=== PATIENT | female | born 1950 | race Caucasian/White ===

== ENCOUNTER → 2020-08-08 | Outpatient (CLI) | payer OTHER | LOC: LAB 12:30 → LAB SHORT 12:30 | DX: D48.5 Neoplasm of uncertain behavior of skin (principal) | CPT/HCPCS: 88305 ==

== ENCOUNTER 2021-04-06 09:09 | Day surgery (SDC) | payer OTHER ==
[~2021-04-06] VITALS: Ht 167.6 cm; Wt 161.8 kg
[~2021-04-06 09:09] MED LIST: ACYC400 PO; BUSP10 PO; HYDHCL25 PO; LEVOTHYROXINE75 MC3 PO; NASACORT10.8 ML NS
== END 2021-04-06 11:22 | disposition home or self-care (01) ==
LOC: ORSCSDS 09:09
PROVIDERS: Ophthalmology
PROC: 08RK3JZ Replacement of Left Lens with Synthetic Substitute, Percutaneous Approach (ICD-10-PCS; principal; 2021-04-06 10:30)
DX: H25.12 Age-related nuclear cataract, left eye (principal); F41.8 Other specified anxiety disorders; Z79.899 Other long term (current) drug therapy
CPT/HCPCS: J2001; J2250; J3301; J7040; V2632

== ENCOUNTER 2021-05-04 08:23 | Day surgery (SDC) | payer OTHER ==
[~2021-05-04] VITALS: Ht 167.6 cm; Wt 72.5 kg
[2021-05-04] MEDS ORDERED: Aspir 8181 MG PO (09:01)
[2021-05-04] MEDS ORDERED: CALCIUM CITRAT1 EAC9 PO (09:02)
[2021-05-04] MEDS ORDERED: CICLODAN6.6 ML TP (09:02)
[2021-05-04] MEDS ORDERED: GLUCHON PO (09:03)
[2021-05-04] MEDS ORDERED: LIOT5 PO (09:03)
[2021-05-04] MEDS ORDERED: HYDHCL25 PO (09:03)
--- NOTE | 2021-05-04 09:08 | NUR ---
05/04/21 0908 KATE ULLOA TETRACAINE DROP INSTILLED AT 0856. PLEDGETT INSERTED AT 0857.
== END 2021-05-04 10:45 | disposition home or self-care (01) ==
LOC: ORSCSDS 08:23
PROVIDERS: Ophthalmology
PROC: 08RJ3JZ Replacement of Right Lens with Synthetic Substitute, Percutaneous Approach (ICD-10-PCS; principal; 2021-05-04 09:45)
DX: H25.11 Age-related nuclear cataract, right eye (principal); E03.9 Hypothyroidism, unspecified; F41.9 Anxiety disorder, unspecified; Z79.899 Other long term (current) drug therapy; Z79.82 Long term (current) use of aspirin
CPT/HCPCS: J2001; J2250; J3010; J3301; J7040; V2632

== ENCOUNTER → 2024-03-24 | Outpatient (CLI) | payer OTHER ==
[~2024-03-24] MED LIST changes: +Aspir 8181 MG PO; +CALCIUM CITRAT1 EAC9 PO; +CICLODAN6.6 ML TP; +GLUCHON PO; +LIOT5 PO
== END ==
LOC: LAB 09:38 → LAB SHORT 09:38
DX: R10.13 Epigastric pain (principal)
CPT/HCPCS: 87338

== ENCOUNTER 2024-05-05 14:05 | Emergency (ER) | payer OTHER ==
[~2024-05-05] VITALS: Ht 167.6 cm; Wt 63.5 kg
[~2024-05-05 14:05] MED LIST changes: +AMOCLA875 PO; +MIRALAX17 GM PO; +OXYC5 PO
[2024-05-05 14:45] LABS: BASOPHILS ABSOLUTE AUTO 0.03 K/mm3 (0.00-0.23); BASOPHILS PERCENT AUTO 1 % (0-2); EOSINOPHILS ABSOLUTE AUTO 0.02 K/mm3 (0.00-0.68); EOSINOPHILS PERCENT AUTO 0 % (0-6); Hematocrit 38.1 % (33.0-51.0); Hemoglobin 13.1 g/dL (11.5-16.0); IMMATURE GRAN ABSOLUTE AUTO 0.03 K/mm3 (0.00-0.10); IMMATURE GRAN PERCENT AUTO 1 % (0-1); LYMPHOCYTES ABSOLUTE AUTO 0.85 K/mm3 (0.84-5.20); LYMPHOCYTES PERCENT AUTO 13 % (21-46); MONOCYTES ABSOLUTE AUTO 0.57 K/mm3 (0.16-1.47); MONOCYTES PERCENT AUTO 9 % (4-13); Mean Corpuscular HGB 30.7 pg (26.0-34.0); Mean Corpuscular HGB Conc 34.4 g/dL (31.5-36.5); Mean Corpuscular Volume 89 fL (80-100); Mean Platelet Volume 9.8 fL (9.1-12.4); NEUTROPHILS PERCENT AUTO 77 % (41-73); Platelet Count 225 K/mm3 (150-400); RDW Coefficient Variation 13.2 % (11.7-14.2); RDW Standard Deviation 43.5 fL (35.1-46.3); Red Blood Cell Count 4.27 M/mm3 (3.80-5.20)
[2024-05-05 15:21] LABS: Albumin, Blood 3.8 g/dL (3.4-5.0); Albumin/Globulin Ratio 1.4 (0.8-1.8); Bilirubin, Total 0.5 mg/dL (0.1-1.0); Bun/Creatinine Ratio 12.6 (12.0-20.0); Calcium, Blood 9.6 mg/dL (8.5-10.1); Creatinine, Blood 0.64 mg/dL (0.40-1.00); Globulin, Blood 2.8 g/dL (2.2-4.0); Potassium, Blood 3.9 mmol/L (3.5-5.5); Total Protein, Blood 6.6 g/dL (6.4-8.2)
[2024-05-05] MEDS ORDERED: Morphine Sulfate 4 MG/1 ML Injection IV ONE (21:45)
[2024-05-05 21:53] LABS: Source, Urine Clean Catch
[2024-05-05 21:57] LABS: Bilirubin, Urine Neg (Neg); Blood, Urine Neg (Neg); Glucose Qualitative, Urine Neg (Neg); Ketones, Urine 3+ (Neg); Leukocyte Esterase, Urine Neg (Neg); Nitrite, Urine Neg (Neg); Protein, Urine Neg (Neg); Urobilinogen, Urine NORM (Normal)
[2024-05-05 22:09] LABS: Appearance, Urine Clear (Clear); Color, Urine Pale Yellow (P-Yellow)
[2024-05-06 00:30] VITALS: BP 141/87
[2024-05-06] MEDS ORDERED: Percocet 5-3251 EACH PO (00:34)
== END 2024-05-06 00:40 | disposition home or self-care (01) ==
LOC: ER 14:05 → MEDS 16:14 → ER 16:14 → MEDS 16:14 → ER 05-06 00:40
PROVIDERS: Physician Assistant; Student in an Organized Health Care Education/Training Program
DX: K86.2 Cyst of pancreas (principal); K52.9 Noninfective gastroenteritis and colitis, unspecified; Z79.899 Other long term (current) drug therapy; Z79.82 Long term (current) use of aspirin
CPT/HCPCS: 74177; 80053; 81003; 83690; 85025; 96374-59; 99284-25; J2270; Q9967

== ENCOUNTER 2024-06-09 06:37 | Day surgery (SDC) | payer OTHER ==
[~2024-06-09] VITALS: Ht 167.6 cm; Wt 59.2 kg
[~2024-06-09 06:37] MED LIST changes: +Percocet 5-3251 EACH PO
[2024-06-09] MEDS ORDERED: ACYC400 (07:04)
[2024-06-09] MEDS ORDERED: ESTA1 (07:05)
[2024-06-09] MEDS ORDERED: METF500 (07:09)
[2024-06-09] MEDS ORDERED: PANT40 (07:10)
[2024-06-09] MEDS ORDERED: Lactated Ringer's 1,000 ML IV ONE ×2 (07:27→07:38)
[2024-06-09] MEDS ORDERED: propofoL 50 ML IV ONE (07:29)
[2024-06-09 08:50] VITALS: BP 127/74
== END 2024-06-09 08:59 | disposition home or self-care (01) ==
LOC: ORSCSDS 06:37
PROVIDERS: Internal Medicine Gastroenterology
PROC: 0DB68ZX Excision of Stomach, Via Natural or Artificial Opening Endoscopic, Diagnostic (ICD-10-PCS; principal; 2024-06-09 08:00)
PROC: 0DJD8ZZ Inspection of Lower Intestinal Tract, Via Natural or Artificial Opening Endoscopic (ICD-10-PCS; principal; 2024-06-09 08:00)
DX: R10.84 Generalized abdominal pain (principal); R63.0 Anorexia; R19.4 Change in bowel habit; R19.7 Diarrhea, unspecified; R63.4 Abnormal weight loss; E11.9 Type 2 diabetes mellitus without complications; E03.9 Hypothyroidism, unspecified; Z79.82 Long term (current) use of aspirin; Z79.899 Other long term (current) drug therapy; Z79.84 Long term (current) use of oral hypoglycemic drugs
CPT/HCPCS: 82947; 88305; 88342; J2704; J7120

== ENCOUNTER 2024-06-24 22:01 | Inpatient (IN) | payer OTHER ==
[~2024-06-24] VITALS: Ht 170.2 cm; Wt 61.8 kg
[~2024-06-24 22:01] MED LIST changes: +ESTA1; +METF500; +PANT40 PO
[2024-06-24 22:41] LABS: BASOPHILS ABSOLUTE AUTO 0.01 K/mm3 (0.00-0.23); BASOPHILS PERCENT AUTO 1 % (0-2); EOSINOPHILS ABSOLUTE AUTO 0.02 K/mm3 (0.00-0.68); EOSINOPHILS PERCENT AUTO 2 % (0-6); Hemoglobin 11.3 g/dL (11.5-16.0); IMMATURE GRAN PERCENT AUTO 0 % (0-1); LYMPHOCYTES PERCENT AUTO 27 % (21-46); MONOCYTES ABSOLUTE AUTO 0.08 K/mm3 (0.16-1.47); MONOCYTES PERCENT AUTO 7 % (4-13); Mean Corpuscular HGB 30.4 pg (26.0-34.0); Mean Corpuscular HGB Conc 33.2 g/dL (31.5-36.5); Mean Corpuscular Volume 91 fL (80-100); Mean Platelet Volume 10.9 fL (9.1-12.4); NEUTROPHILS ABSOLUTE AUTO 0.69 K/mm3 (1.96-9.15); NEUTROPHILS PERCENT AUTO 63 % (41-73); Platelet Count 218 K/mm3 (150-400); RDW Coefficient Variation 13.9 % (11.7-14.2); RDW Standard Deviation 46.8 fL (35.1-46.3); Red Blood Cell Count 3.72 M/mm3 (3.80-5.20)
[2024-06-24 23:03] LABS: Albumin, Blood 3.3 g/dL (3.4-5.0); Albumin/Globulin Ratio 1.1 (0.8-1.8); Bilirubin, Total 0.4 mg/dL (0.1-1.0); Calcium, Blood 8.9 mg/dL (8.5-10.1); Creatinine, Blood 0.5 mg/dL (0.40-1.00); Globulin, Blood 3.1 g/dL (2.2-4.0); Potassium, Blood 3.4 mmol/L (3.5-5.5); Total Protein, Blood 6.4 g/dL (6.4-8.2)
[2024-06-25 02:49] LABS: Source, Urine Clean Catch
[2024-06-25] MEDS ORDERED: FentaNYL Citrate 50 MCG/ML 2 ML Injection IV PRN ×2 (02:50→06:10)
[2024-06-25 02:52] LABS: Bilirubin, Urine Neg (Neg); Blood, Urine Neg (Neg); Glucose Qualitative, Urine Neg (Neg); Ketones, Urine 2+ (Neg); Leukocyte Esterase, Urine 1+ (Neg); Nitrite, Urine Neg (Neg); Protein, Urine 1+ (Neg); Specific Gravity, Urine 1.015 (1.003-1.022); Urobilinogen, Urine NORM (Normal)
[2024-06-25 02:58] LABS: Appearance, Urine Hazy (Clear); Color, Urine Yellow (P-Yellow)
[2024-06-25 03:00] LABS: Amorphous Light (0-Heavy); Bacteria Mod /hpf; Calcium Oxalate Crystals Few /hpf; Red Blood Cells, Urine 0-2 /hpf (0-2); Squamous Epithelial Cells Mod /hpf (Few); White Blood Cells, Urine 0-2 /hpf (0-5); Yeast/Fungi Urine Many /hpf
[2024-06-25] MEDS ORDERED: NS 1,000 ML IV SCH (03:35)
[2024-06-25] MEDS ORDERED: Ondansetron HCl 2 MG / ML 2ML Vial IV ONE (03:35)
[2024-06-25] MEDS ORDERED: Ampicillin Sod/Sulbactam Sod 3 GM in NS 100 ML IV ONE (06:15)
[2024-06-25] MEDS ORDERED: OxyCODONE HCL 5 MG TAB PO ONE (07:20)
[2024-06-25] MEDS ORDERED: Docusate Sodium/Senna 1 Tab PO PRN (08:30)
[2024-06-25] MEDS ORDERED: Polyethylene Glycol 3350 17 gm PO PRN (08:30)
[2024-06-25] MEDS ORDERED: HYDROmorphone HCl/Pf 1MG SYR IV PRN (08:30)
[2024-06-25] MEDS ORDERED: OxyCODONE HCL 5 MG TAB PO PRN (08:30)
[2024-06-25] MEDS ORDERED: FLU VACC TS2024-25(6MOS UP)/PF 45 MCG/0.5 ML SYRINGE IM SCH (08:45)
[2024-06-25] MEDS ORDERED: Simethicone 80 MG Chew PO PRN (08:45)
[2024-06-25] MEDS ORDERED: Bentyl20 MG PO (08:57)
[2024-06-25] MEDS ORDERED: MOVANTIK PO (08:57)
[2024-06-25] MEDS ORDERED: ESTRADIOL1 M1 PO (08:58)
[2024-06-25] MEDS ORDERED: MUCINEX DM PO (09:00)
[2024-06-25] MEDS ORDERED: Acetaminophen 500 MG Tab PO SCH (09:00)
[2024-06-25] MEDS ORDERED: Potassium Chloride 20 MEQ TabCR PO SCH (12:00)
[2024-06-25] MEDS ORDERED: CefTRIAXone Sodium 1,000 MG in NS 100 ML IV SCH (12:00)
[2024-06-25] MEDS ORDERED: MOVANTIK25 M1 PO (16:05)
[2024-06-25] MEDS ORDERED: METF500 PO (16:07)
[2024-06-25 16:48] VITALS: BP 103/62
[2024-06-25] MEDS ORDERED: ACYC400 PO (16:57)
[2024-06-25] MEDS ORDERED: BUSP5 PO (16:59)
[2024-06-25] MEDS ORDERED: GUAI600T33 PO (17:05)
[2024-06-25] MEDS ORDERED: Ondansetron HCl 2 MG / ML 2ML Vial IV PRN (17:45)
--- NOTE | 2024-06-25 17:46 | NUR ---
ADMISSION NOTE MS LONDONO WAS ADMITTED TO MEDICAL FLOOR FROM ER AT 1623. TRANSFERED VIA WHEELCHAIR. STEADY GAIT AROUND ROOM/BATHROOM INDEPENDENTLY. C/O ABDOMINAL PAIN HELPED WITH PAIN MEDICATIONS. ASCITES PRESENT. C/O MILD NAUSEA. MS LONDONO LIVES ALONE IN A MOBILE HOME. SHE SAID SHE HAS GOOD SIKH/FRIENDS/FAMILY SUPPORT. MED REC DONE; [facility] NOT OPEN TO VERIFY SOME OF THE MED DOSES THAT SHE DOESN'T KNOW. CALL LIGHT IN REACH, BED LOW.
[2024-06-25] MEDS ORDERED: Dicyclomine HCl 20 MG Tab PO PRN (18:10)
[2024-06-25] MEDS ORDERED: OxyCODONE 5 mg/Acetamin 325 mg TABLET PO PRN (18:10)
[2024-06-25 19:00] VITALS: BP 121/60
[2024-06-25] MEDS ORDERED: BusPIRone HCl 10 MG Tab PO SCH (21:00)
[2024-06-26 04:28] VITALS: BP 118/58
[2024-06-26 05:21] LABS: BASOPHILS ABSOLUTE AUTO 0.02 K/mm3 (0.00-0.23); BASOPHILS PERCENT AUTO 0 % (0-2); EOSINOPHILS ABSOLUTE AUTO 0.04 K/mm3 (0.00-0.68); EOSINOPHILS PERCENT AUTO 1 % (0-6); Hematocrit 29.2 % (33.0-51.0); Hemoglobin 9.6 g/dL (11.5-16.0); IMMATURE GRAN ABSOLUTE AUTO 0.02 K/mm3 (0.00-0.10); IMMATURE GRAN PERCENT AUTO 0 % (0-1); LYMPHOCYTES ABSOLUTE AUTO 0.37 K/mm3 (0.84-5.20); LYMPHOCYTES PERCENT AUTO 5 % (21-46); MONOCYTES ABSOLUTE AUTO 0.89 K/mm3 (0.16-1.47); MONOCYTES PERCENT AUTO 13 % (4-13); Mean Corpuscular HGB 30.5 pg (26.0-34.0); Mean Corpuscular HGB Conc 32.9 g/dL (31.5-36.5); Mean Corpuscular Volume 93 fL (80-100); Mean Platelet Volume 11.3 fL (9.1-12.4); NEUTROPHILS PERCENT AUTO 81 % (41-73); Platelet Count 170 K/mm3 (150-400); RDW Coefficient Variation 14.6 % (11.7-14.2); RDW Standard Deviation 49.7 fL (35.1-46.3); Red Blood Cell Count 3.15 M/mm3 (3.80-5.20); White Blood Cell Count 7.04 K/mm3 (4.00-11.30)
[2024-06-26 05:49] LABS: Albumin, Blood 2.7 g/dL (3.4-5.0); Bilirubin, Total 0.4 mg/dL (0.1-1.0); Bun/Creatinine Ratio 20.4 (12.0-20.0); Calcium, Blood 8.5 mg/dL (8.5-10.1); Creatinine, Blood 0.49 mg/dL (0.40-1.00); Globulin, Blood 2.8 g/dL (2.2-4.0); Magnesium, Blood 1.9 mg/dL (1.6-2.4); Phosphorus, Blood 1.7 mg/dL (2.5-4.9); Potassium, Blood 3.6 mmol/L (3.5-5.5); Total Protein, Blood 5.5 g/dL (6.4-8.2)
[2024-06-26] MEDS ORDERED: Levothyroxine Sodium 0.075 MG Tab PO SCH (06:00)
--- NOTE | 2024-06-26 06:41 | NUR ---
SHIFT SUMMARY PATIENT IS ALERT AND ORIENTED. PATIENT HAS HAD NO ACUTE EVENTS THIS SHIFT. VITAL SIGNS REVIEWED. PATIENT HAS BEEN IND THIS SHIFT. PATIENT HAS COMPLAINED OF PAIN THIS SHIFT AND MEDICATED PER EMAR. PATIENT HAS HAD NO COMPLAINTS OF SOB, NAUSEA OR VOMITTING THIS SHIFT. BED IN LOCKED AND LOWEST POSITION. CALL LIGHT IN PLACE.
[2024-06-26] MEDS ORDERED: Aspirin 81 MG TabEC PO SCH (09:00)
[2024-06-26] MEDS ORDERED: Pantoprazole Sodium 40 MG Tab PO SCH (09:00)
[2024-06-26] MEDS ORDERED: GuaiFENesin 600 MG TabCR PO SCH (09:00)
[2024-06-26] MEDS ORDERED: Estradiol 1 MG Tab PO SCH (09:00)
[2024-06-26] MEDS ORDERED: Enoxaparin 40 MG/0.4 ML SYR SC SCH (09:00)
[2024-06-26] MEDS ORDERED: Naloxegol Oxalate 12.5 MG Tab PO SCH (09:00)
[2024-06-26] MEDS ORDERED: Acyclovir 400 MG Tab PO SCH (09:00)
[2024-06-26] MEDS ORDERED: Liothyronine Sodium 5 MCG Tab PO SCH (09:00)
[2024-06-26 14:29] VITALS: BP 131/70
--- NOTE | 2024-06-26 18:21 | NUR ---
SHIFT SUMMARY PT AOX4, COOPERATIVE, ABLE TO MAKE NEEDS KNOWN. IND IN ROOM. DID EXPRESS ABD DISCOMFORT, PT REPORTS "CONSTIPATION", MEDICATED PER EMAR. WELL ABD PAIN, AGAIN, MEDICATE PER EMAR. ON ROOM AIR. POSSIBLE PROCEDURE TOMORROW PER MD. NO OTHER ACUTE EVENTS TOOK PLACE THIS SHIFT. BED IN LOWEST POSITION, CALL LIGHT WITHIN REACH.
[2024-06-26 20:13] VITALS: BP 121/62
[2024-06-27 04:15] VITALS: BP 107/54
[2024-06-27 05:17] LABS: BASOPHILS ABSOLUTE AUTO 0.01 K/mm3 (0.00-0.23); BASOPHILS PERCENT AUTO 0 % (0-2); EOSINOPHILS ABSOLUTE AUTO 0.03 K/mm3 (0.00-0.68); EOSINOPHILS PERCENT AUTO 0 % (0-6); Hematocrit 31.2 % (33.0-51.0); IMMATURE GRAN ABSOLUTE AUTO 0.03 K/mm3 (0.00-0.10); IMMATURE GRAN PERCENT AUTO 0 % (0-1); LYMPHOCYTES ABSOLUTE AUTO 0.35 K/mm3 (0.84-5.20); LYMPHOCYTES PERCENT AUTO 4 % (21-46); MONOCYTES ABSOLUTE AUTO 0.69 K/mm3 (0.16-1.47); MONOCYTES PERCENT AUTO 8 % (4-13); Mean Corpuscular HGB 29.9 pg (26.0-34.0); Mean Corpuscular HGB Conc 32.1 g/dL (31.5-36.5); Mean Corpuscular Volume 93 fL (80-100); Mean Platelet Volume 11.2 fL (9.1-12.4); NEUTROPHILS ABSOLUTE AUTO 7.29 K/mm3 (1.96-9.15); NEUTROPHILS PERCENT AUTO 87 % (41-73); Platelet Count 196 K/mm3 (150-400); RDW Coefficient Variation 14.8 % (11.7-14.2); Red Blood Cell Count 3.34 M/mm3 (3.80-5.20)
--- NOTE | 2024-06-27 05:31 | NUR ---
SHIFT SUMMARY PATIENT IS ALERT AND ORIENTED. PATIENT HAS HAD NO ACUTE EVENTS THIS SHIFT. PATIENT HAS BEEN IND THIS SHIFT. PATIENT HAS ENDORSED PAIN AND ABD PRESSURE THIS SHIFT. PATIENT HAS HAD NO COMPLAINTS OF NAUSEA, SOB OR VOMITTING THIS SHIFT. VITAL SIGNS REVIEWED. BED IN LOCKED AND LOWEST POSITION.
[2024-06-27 05:57] LABS: Albumin, Blood 2.6 g/dL (3.4-5.0); Albumin/Globulin Ratio 0.9 (0.8-1.8); Bilirubin, Total 0.3 mg/dL (0.1-1.0); Bun/Creatinine Ratio 11.8 (12.0-20.0); Calcium, Blood 8.7 mg/dL (8.5-10.1); Creatinine, Blood 0.59 mg/dL (0.40-1.00); Magnesium, Blood 1.7 mg/dL (1.6-2.4); Potassium, Blood 4.1 mmol/L (3.5-5.5); Total Protein, Blood 5.6 g/dL (6.4-8.2)
[2024-06-27 08:05] VITALS: BP 129/70
[2024-06-27] MEDS ORDERED: ACET500 PO (12:32)
[2024-06-27] MEDS ORDERED: AMOCLA875 PO (12:33)
[2024-06-27] MEDS ORDERED: ONDA4ODT MM (12:33)
[2024-06-27] MEDS ORDERED: DOCUZEN 8.6-501 EACH PO (12:33)
[2024-06-27] MEDS ORDERED: OXYC5 PO (12:34)
[2024-06-27] MEDS ORDERED: MIRALAX17 GM PO (12:34)
[2024-06-27] MEDS ORDERED: SIME80CH PO (12:35)
== END 2024-06-27 17:13 | disposition home or self-care (01) | DRG 436 ==
LOC: ER 22:01 → ERHOLD 06-25 08:42 → MEDS 06-25 08:42 → EDBEDREQ 06-25 08:46 → EDBEDREQTM 06-25 08:46 → MEDS 06-25 16:29
PROVIDERS: Physician Assistant; ADMIT Family Medicine
DX: C25.1 Malignant neoplasm of body of pancreas (principal); B00.89 Other herpesviral infection; N39.0 Urinary tract infection, site not specified; E03.9 Hypothyroidism, unspecified; E78.5 Hyperlipidemia, unspecified; M81.0 Age-related osteoporosis without current pathological fracture; F41.9 Anxiety disorder, unspecified; E11.9 Type 2 diabetes mellitus without complications; Z79.82 Long term (current) use of aspirin; Z79.890 Hormone replacement therapy; Z79.891 Long term (current) use of opiate analgesic; Z79.899 Other long term (current) drug therapy; Z90.710 Acquired absence of both cervix and uterus; Z87.19 Personal history of other diseases of the digestive system; Z98.890 Other specified postprocedural states; Z79.84 Long term (current) use of oral hypoglycemic drugs; E86.0 Dehydration
CPT/HCPCS: 36415; 74177; 76705; 80053; 81001; 82330; 82947; 83690; 83735; 84100; 85025; 87077; 87086; 87186; 93005; 93010; 96361; 96365; 96375; 96376; 99285-25; A9270; J0295; J0696; J1171; J1650; J2405; J3010; J7030; Q9967

== ENCOUNTER → 2024-07-31 | Outpatient (CLI) | payer OTHER ==
[~2024-07-31] MED LIST changes: +ACET500 PO; +BUSP5 PO; +Bentyl20 MG PO; +DOCUZEN 8.6-501 EACH PO; +ESTRADIOL1 M1 PO; +GUAI600T33 PO; +METF500 PO; +MOVANTIK PO; +MOVANTIK25 M1 PO; +MUCINEX DM PO; +ONDA4ODT MM; +SIME80CH PO
[2024-07-31 13:49] LABS: BASOPHILS ABSOLUTE AUTO 0.03 K/mm3 (0.00-0.23); BASOPHILS PERCENT AUTO 0 % (0-2); EOSINOPHILS ABSOLUTE AUTO 0.15 K/mm3 (0.00-0.68); EOSINOPHILS PERCENT AUTO 2 % (0-6); Hematocrit 35.4 % (33.0-51.0); Hemoglobin 11.5 g/dL (11.5-16.0); IMMATURE GRAN ABSOLUTE AUTO 0.02 K/mm3 (0.00-0.10); IMMATURE GRAN PERCENT AUTO 0 % (0-1); LYMPHOCYTES ABSOLUTE AUTO 1.08 K/mm3 (0.84-5.20); LYMPHOCYTES PERCENT AUTO 15 % (21-46); MONOCYTES ABSOLUTE AUTO 0.75 K/mm3 (0.16-1.47); MONOCYTES PERCENT AUTO 10 % (4-13); Mean Corpuscular HGB 29.9 pg (26.0-34.0); Mean Corpuscular HGB Conc 32.5 g/dL (31.5-36.5); Mean Corpuscular Volume 92 fL (80-100); Mean Platelet Volume 10.4 fL (9.1-12.4); NEUTROPHILS ABSOLUTE AUTO 5.18 K/mm3 (1.96-9.15); NEUTROPHILS PERCENT AUTO 72 % (41-73); Platelet Count 313 K/mm3 (150-400); RDW Coefficient Variation 16.1 % (11.7-14.2); RDW Standard Deviation 53.9 fL (35.1-46.3); Red Blood Cell Count 3.85 M/mm3 (3.80-5.20); White Blood Cell Count 7.21 K/mm3 (4.00-11.30)
[2024-07-31 13:58] LABS: Albumin, Blood 3.5 g/dL (3.4-5.0); Albumin/Globulin Ratio 1.1 (0.8-1.8); Bilirubin, Total 0.5 mg/dL (0.1-1.0); Bun/Creatinine Ratio 15.5 (12.0-20.0); Calcium, Blood 9.4 mg/dL (8.5-10.1); Creatinine, Blood 0.58 mg/dL (0.40-1.00); Globulin, Blood 3.1 g/dL (2.2-4.0); Potassium, Blood 4.1 mmol/L (3.5-5.5); Total Protein, Blood 6.6 g/dL (6.4-8.2)
== END | disposition home or self-care (01) ==
LOC: LAB SHORT 13:43 → LAB 13:43
PROVIDERS: Chiropractor
DX: R10.9 Unspecified abdominal pain (principal); R82.90 Unspecified abnormal findings in urine
CPT/HCPCS: 80053; 83690; 85025; 87086

== ENCOUNTER 2024-08-03 12:54 | Inpatient (IN) | payer OTHER ==
[~2024-08-03] VITALS: Ht 167.6 cm; Wt 55.0 kg
[2024-08-03 14:13] LABS: BASOPHILS ABSOLUTE AUTO 0.04 K/mm3 (0.00-0.23); BASOPHILS PERCENT AUTO 1 % (0-2); EOSINOPHILS ABSOLUTE AUTO 0.05 K/mm3 (0.00-0.68); EOSINOPHILS PERCENT AUTO 1 % (0-6); Hematocrit 34.4 % (33.0-51.0); Hemoglobin 11.8 g/dL (11.5-16.0); IMMATURE GRAN ABSOLUTE AUTO 0.04 K/mm3 (0.00-0.10); IMMATURE GRAN PERCENT AUTO 1 % (0-1); LYMPHOCYTES ABSOLUTE AUTO 0.58 K/mm3 (0.84-5.20); LYMPHOCYTES PERCENT AUTO 7 % (21-46); MONOCYTES ABSOLUTE AUTO 0.73 K/mm3 (0.16-1.47); MONOCYTES PERCENT AUTO 9 % (4-13); Mean Corpuscular HGB 30.3 pg (26.0-34.0); Mean Corpuscular HGB Conc 34.3 g/dL (31.5-36.5); Mean Corpuscular Volume 88 fL (80-100); Mean Platelet Volume 10.3 fL (9.1-12.4); NEUTROPHILS ABSOLUTE AUTO 6.69 K/mm3 (1.96-9.15); NEUTROPHILS PERCENT AUTO 82 % (41-73); Platelet Count 331 K/mm3 (150-400); RDW Coefficient Variation 15.7 % (11.7-14.2); White Blood Cell Count 8.13 K/mm3 (4.00-11.30)
[2024-08-03 14:24] LABS: Albumin, Blood 3.4 g/dL (3.4-5.0); Albumin/Globulin Ratio 1.1 (0.8-1.8); Bilirubin, Total 0.8 mg/dL (0.1-1.0); Bun/Creatinine Ratio 21.6 (12.0-20.0); Calcium, Blood 8.8 mg/dL (8.5-10.1); Creatinine, Blood 0.46 mg/dL (0.40-1.00); Potassium, Blood 3.7 mmol/L (3.5-5.5); Total Protein, Blood 6.4 g/dL (6.4-8.2)
[2024-08-03] MEDS ORDERED: HYDROmorphone HCl/Pf 1MG SYR IV ONE (17:20)
[2024-08-03] MEDS ORDERED: NS 1,000 ML IV SCH ×2 (17:45→20:30)
[2024-08-03] MEDS ORDERED: HYDROmorphone HCl/Pf 1MG SYR IV PRN (17:45)
[2024-08-03 18:29] LABS: Source, Urine Clean Catch
[2024-08-03 18:31] LABS: Appearance, Urine Hazy (Clear); Bilirubin, Urine Neg (Neg); Blood, Urine 1+ (Neg); Glucose Qualitative, Urine Neg (Neg); Ketones, Urine 3+ (Neg); Leukocyte Esterase, Urine 3+ (Neg); Nitrite, Urine Neg (Neg); Protein, Urine 1+ (Neg); Urobilinogen, Urine NORM (Normal)
[2024-08-03 18:35] LABS: Color, Urine Pale Yellow (P-Yellow)
[2024-08-03 18:41] LABS: Bacteria Mod /hpf; Squamous Epithelial Cells Rare /hpf (Few); White Blood Cells, Urine TNTC /hpf (0-5)
[2024-08-03] MEDS ORDERED: CefTRIAXone Sodium 1,000 MG in NS 50 ML IV ONE (19:25)
[2024-08-03] MEDS ORDERED: Morphine Sulfate 4 MG/1 ML Injection IV PRN (20:10)
[2024-08-03] MEDS ORDERED: FLU VACC TS2024-25(6MOS UP)/PF 45 MCG/0.5 ML SYRINGE IM ONE (20:10)
[2024-08-03] MEDS ORDERED: FentaNYL Citrate 50 MCG/ML 2 ML Injection IV PRN (20:15)
[2024-08-03] MEDS ORDERED: Ondansetron HCl 2 MG / ML 2ML Vial IV PRN (20:15)
[2024-08-03] MEDS ORDERED: Enoxaparin 30 MG/0.3 ML SYR SC SCH (21:00)
--- NOTE | 2024-08-03 22:15 | NUR ---
REPORT RECEIVED FROM STEPHANIE (CRIMINALIST TECHNICIAN) AND AWAITING PT T/F TO ROOM 343.
[2024-08-03 22:42] VITALS: BP 152/89
[2024-08-04] MEDS ORDERED: Sod Phosphate/Sod Biphosphate 132 ML BTL PR PRN (00:10)
[2024-08-04] MEDS ORDERED: Magnesium Hydroxide Conc 10 ML UDC PO PRN (00:10)
[2024-08-04] MEDS ORDERED: Bisacodyl 10 MG Supp PR PRN (01:00)
[2024-08-04] MEDS ORDERED: Bisacodyl 10 MG Supp PR ONE (01:00)
[2024-08-04] MEDS ORDERED: Prochlorperazine Edisylate 10 mg Vial IV PRN (03:20)
--- NOTE | 2024-08-04 04:12 | NUR ---
ADMIT AND SUMMARY: PT T/F VIA GURNEY TO ROOM 343 AT 2230. SHE'S A/OX4, WAS ORIENTED TO ROOM AND CALL SYSTEM AND IS UP AD LOBO IN ROOM. PT IS AWARE OF LIMITATIONS AND KNOWS TO ALERT STAFF FOR ASSIST PRN. ABDO IS DISTENDED AND SLIGHTLY TENDER AND PT C/O OF INTERMITTENT NAUSEA W/O EMESIS. ZOFRAN, COMPAZINE, DILAUDID AND MORPHINE RECEIVED PRN FOR TOLERABLE RELIEF. SHE ALSO USES KPAD FOR ADDITIONAL PAIN MANAGEMENT. BT'S (+) AND HYPERACTIVE X4 QUADS. DULCOLAX SUPPOSITORY ADMINISTERED PER EMAR AND PT REPORTED HAVING "CUP SIZED" AMT OF SOFT STOOL. SHE REMAINS NPO W/NS INFUSING AT 1OO ML/HR. IV ABX RECEIVED IN ER FOR POSS.UTI. PT IS NSR ON TELE AT 70'S BPM. NO ACUTE CHANGES, VSS AND AFEBRILE. WCTM AND REPORT TO DAY RN.
[2024-08-04 04:38] VITALS: BP 133/69
[2024-08-04 05:28] LABS: BASOPHILS ABSOLUTE AUTO 0.03 K/mm3 (0.00-0.23); BASOPHILS PERCENT AUTO 1 % (0-2); EOSINOPHILS ABSOLUTE AUTO 0.06 K/mm3 (0.00-0.68); EOSINOPHILS PERCENT AUTO 1 % (0-6); Hematocrit 30.3 % (33.0-51.0); Hemoglobin 9.8 g/dL (11.5-16.0); IMMATURE GRAN ABSOLUTE AUTO 0.01 K/mm3 (0.00-0.10); IMMATURE GRAN PERCENT AUTO 0 % (0-1); LYMPHOCYTES ABSOLUTE AUTO 0.45 K/mm3 (0.84-5.20); LYMPHOCYTES PERCENT AUTO 9 % (21-46); MONOCYTES ABSOLUTE AUTO 0.57 K/mm3 (0.16-1.47); MONOCYTES PERCENT AUTO 12 % (4-13); Mean Corpuscular HGB 29.6 pg (26.0-34.0); Mean Corpuscular HGB Conc 32.3 g/dL (31.5-36.5); Mean Corpuscular Volume 92 fL (80-100); Mean Platelet Volume 9.7 fL (9.1-12.4); NEUTROPHILS ABSOLUTE AUTO 3.75 K/mm3 (1.96-9.15); NEUTROPHILS PERCENT AUTO 77 % (41-73); Platelet Count 185 K/mm3 (150-400); RDW Standard Deviation 54.1 fL (35.1-46.3); Red Blood Cell Count 3.31 M/mm3 (3.80-5.20); White Blood Cell Count 4.87 K/mm3 (4.00-11.30)
[2024-08-04 05:57] LABS: Free Thyroxine 1.27 ng/dL (0.70-1.60)
[2024-08-04] MEDS ORDERED: Levothyroxine Sodium 0.075 MG Tab PO SCH (06:00)
[2024-08-04 06:02] LABS: Albumin, Blood 2.7 g/dL (3.4-5.0); Albumin/Globulin Ratio 1.1 (0.8-1.8); Bilirubin, Total 0.6 mg/dL (0.1-1.0); Bun/Creatinine Ratio 14.7 (12.0-20.0); Creatinine, Blood 0.41 mg/dL (0.40-1.00); Globulin, Blood 2.4 g/dL (2.2-4.0); Potassium, Blood 2.8 mmol/L (3.5-5.5); Thyroid Stimulating Hormone 2.57 uIU/mL (0.360-4.800); Total Protein, Blood 5.1 g/dL (6.4-8.2)
[2024-08-04] MEDS ORDERED: Liothyronine Sodium 5 MCG Tab PO SCH (06:42)
--- NOTE | 2024-08-04 06:52 | NUR ---
ALERTED TO K+ 2.8 W/60 MEQ IV PIGGYBACK RX'D.
[2024-08-04 07:27] VITALS: BP 144/66
[2024-08-04] MEDS ORDERED: Potassium Chloride 20 MEQ in NS 90 ML IV SCH (08:00)
[2024-08-04] MEDS ORDERED: NS 1,000 ML BAG IR SCH (08:10)
[2024-08-04] MEDS ORDERED: D5W-1/2NS 1,000 ML IV SCH (10:00)
[2024-08-04] MEDS ORDERED: Clotrimazole 10 MG Troche MT SCH (14:00)
[2024-08-04 15:27] VITALS: BP 159/84
[2024-08-04] MEDS ORDERED: HYDROmorphone HCl 0.5 MG/0.5 ML SYR IV PRN (17:20)
--- NOTE | 2024-08-04 17:24 | NUR ---
INITIAL PC VISIT: CONFERENCED WITH JARROD PITTMAN MET WITH PATIENT IN HER ROOM. PT IS ALERT AND ORIENTED ABLE TO PARTICIPATE IN MEANINGFUL CONVERSATION. PT REPORTS PAIN IS MANAGED WITH IV MORPHINE AND FENTANYL FOR BREAKTHROUGH PAIN AT THIS TIME. GOALS OF CARE DISCUSSED. PT REPORTS HER MAIN CONCERN IS "COMFORT CARE" MEANING SHE WANTS HER PAIN MANAGED SO SHE CAN HAVE QUALITY OF LIFE AND BE ABLE TO EAT. SHE REPORTED SHE WAS GIVEN DILAUDID IN THE ER AND THAT INITIAL DOSE MANAGED HER PAIN VERY WELL, BETTER THAN MORPHINE/FENTANYL COMBO DOES. SHE WAS TOLD THERE WAS A NATIONAL SHORTAGE OF THE MEDICATION AND THAT IS WHY SHE WAS SWITCHED TO MORPHINE/FENTANYL. PT REPORTS SHE HAS A BIOPSY SCHEDULED ON 08/13 THEN SHE WANTS TO BE REFERRED TO DR. ROSARIO. SHE REPORTS SHE HAS BEEN TOLD BY HER PCP AND SURGEON SHE HAS POOR PROGNOSIS BUT SHE STILL WANTS THE BIOPSY TO DETERMINE IF HER CANCER IS TREATABLE. PT IS AGREEABLE TO HOSPICE SERVICES IF TREATMENT FOR CANCER IS NOT A VIABLE OPTION. SPOKE TO PHARMACY AND THEY REPORTED THEY HAVE DILAUDID AVAILABLE IN ORAL FORM AND IV STRENGTHS OF 0.5-5 MG THAT CAN BE USED AT THIS TIME TO TREAT PAIN. UPDATED DR. SHANKS OF PT CONVERSATION WITH PATIENT AND HER DESIRE TO HAVE DILAUDID PAIN MANAGEMENT MEDICATION.
[2024-08-04] MEDS ORDERED: Acetaminophen 500 MG Tab PO PRN (18:15)
[2024-08-04] MEDS ORDERED: BusPIRone HCl 5 MG Tab PO PRN (18:20)
[2024-08-04] MEDS ORDERED: Docusate Sodium/Senna 1 Tab PO PRN (18:50)
[2024-08-04] MEDS ORDERED: Amylase/Lipase/Protease DR Cap 12,000 PO SCH ×2 (18:50→19:30)
--- NOTE | 2024-08-04 18:55 | NUR ---
PT A&OX4, VSS, RA, SR ON TELE, IND IN ROOM. PT NPO MOST OF SHIFT, FULL LIQUID DIET ORDERED AT 1800, CREON ORDERED WITH MEALS. PT PAIN SOMEWHAT MANAGED WITH PRN MORPHINE, AND FENTANYL. PT REQUESTED DILAUDED, MORPHINE ORDER CANCELLED AND REPLACED WITH DILAUDED Q4. PT HAD 2 SM BM AFTER SUPPOSITORY. CALL LIGHT IN REACH, BED IN LOW LOCKED POSITION.
[2024-08-04 19:59] VITALS: BP 159/81
[2024-08-04] MEDS ORDERED: Simethicone 80 MG Chew PO SCH (21:00)
[2024-08-04 23:58] VITALS: BP 148/79
[2024-08-05 04:03] VITALS: BP 138/78
[2024-08-05 05:50] LABS: BASOPHILS ABSOLUTE AUTO 0.02 K/mm3 (0.00-0.23); BASOPHILS PERCENT AUTO 0 % (0-2); EOSINOPHILS ABSOLUTE AUTO 0.15 K/mm3 (0.00-0.68); EOSINOPHILS PERCENT AUTO 2 % (0-6); Hematocrit 34.7 % (33.0-51.0); Hemoglobin 11.3 g/dL (11.5-16.0); IMMATURE GRAN ABSOLUTE AUTO 0.01 K/mm3 (0.00-0.10); IMMATURE GRAN PERCENT AUTO 0 % (0-1); LYMPHOCYTES ABSOLUTE AUTO 0.82 K/mm3 (0.84-5.20); LYMPHOCYTES PERCENT AUTO 13 % (21-46); MONOCYTES PERCENT AUTO 13 % (4-13); Mean Corpuscular HGB 29.5 pg (26.0-34.0); Mean Corpuscular HGB Conc 32.6 g/dL (31.5-36.5); Mean Corpuscular Volume 91 fL (80-100); Mean Platelet Volume 10.4 fL (9.1-12.4); NEUTROPHILS ABSOLUTE AUTO 4.38 K/mm3 (1.96-9.15); NEUTROPHILS PERCENT AUTO 71 % (41-73); Platelet Count 257 K/mm3 (150-400); RDW Coefficient Variation 15.9 % (11.7-14.2); RDW Standard Deviation 53.2 fL (35.1-46.3); Red Blood Cell Count 3.83 M/mm3 (3.80-5.20); White Blood Cell Count 6.18 K/mm3 (4.00-11.30)
[2024-08-05] MEDS ORDERED: Pantoprazole Sodium 40 MG Tab PO SCH (06:00)
[2024-08-05 06:19] LABS: Bun/Creatinine Ratio 5.4 (12.0-20.0); Calcium, Blood 8.8 mg/dL (8.5-10.1); Creatinine, Blood 0.37 mg/dL (0.40-1.00); Potassium, Blood 3.5 mmol/L (3.5-5.5)
--- NOTE | 2024-08-05 07:38 | NUR ---
INFORMED MD OF SODIUM 132, YESTERDAY 136. MD INFORMED RN HE WOULD PLACE ORDERS TO SWITCH FLUIDS.
[2024-08-05 08:07] VITALS: BP 143/83
[2024-08-05] MEDS ORDERED: Estradiol 1 MG Tab PO SCH (09:00)
[2024-08-05] MEDS ORDERED: Acyclovir 400 MG Tab PO SCH (09:00)
[2024-08-05 12:10] VITALS: BP 132/73
[2024-08-05] MEDS ORDERED: HYDROmorphone HCl 0.5 MG/0.5 ML SYR IV PRN (14:25)
[2024-08-05] MEDS ORDERED: HYDROmorphone HCl 2 MG Tab PO PRN (14:25)
[2024-08-05] MEDS ORDERED: CefTRIAXone Sodium 1,000 MG in NS 100 ML IV SCH (15:00)
[2024-08-05 17:25] VITALS: BP 146/85
--- NOTE | 2024-08-05 18:39 | NUR ---
SHIFT SUMMARY PT AOX4, COOPERATIVE, ABLE TO MAKE NEEDS KNOWN. PT IS IND IN ROOM. RUNNING D5 1/2NS AT 100ML/HR. TOLERATING IV AND PO MEDICATIONS WELL. HAVING DIFFIUCLT TIME HAVING ANYTHING BUT SMALL BOWEL MOVEMENTS. NO OTHER ACUTE EVENTS TOOK PLACE THIS SHIFT. BED IN LOWEST POSITION, CALL LIGHT WITHIN REACH.
[2024-08-05 20:37] VITALS: BP 154/81
[2024-08-06] VITALS (7 sets, daily range): BP systolic 133–141; BP diastolic 74–84
--- NOTE | 2024-08-06 04:07 | NUR ---
SHIFT SUMMARY PATIENT HAD NO ACUTE CHANGES. ALERT, ORIENTED, AND INDEPENDENT. REPORTED MINIMAL BOWEL MOVEMENT AND ASKED FOR FLEET ENEMA AND GIVEN PER EMAR. REPORTED STILL MINIMAL BM. DULCOLAX SUPPOSITORY GIVEN. REPORTED ABDOMEN PAIN X TWO AND PO DILAUDID AND IV DILAUDID GIVEN PER EMAR WITH GOOD EFFECT. PIV INTACT. D5 NS INFUSING @ 100 Ml/hr. DENIES CHEST PAIN, SOB, AND N/V. VSS/AFEBRILE. TELE MONITOR NSR 79. CALL LIGHT IN REACH. BED IN LOWEST POSITION. WILL CONTINUE TO MONITOR UNTIL DAY SHIFT NURSE ASSUMES CARE.
[2024-08-06 05:55] LABS: BASOPHILS ABSOLUTE AUTO 0.02 K/mm3 (0.00-0.23); BASOPHILS PERCENT AUTO 0 % (0-2); EOSINOPHILS ABSOLUTE AUTO 0.14 K/mm3 (0.00-0.68); EOSINOPHILS PERCENT AUTO 3 % (0-6); Hematocrit 36.1 % (33.0-51.0); Hemoglobin 11.5 g/dL (11.5-16.0); IMMATURE GRAN ABSOLUTE AUTO 0.02 K/mm3 (0.00-0.10); IMMATURE GRAN PERCENT AUTO 0 % (0-1); LYMPHOCYTES ABSOLUTE AUTO 0.84 K/mm3 (0.84-5.20); LYMPHOCYTES PERCENT AUTO 18 % (21-46); MONOCYTES ABSOLUTE AUTO 0.52 K/mm3 (0.16-1.47); MONOCYTES PERCENT AUTO 11 % (4-13); Mean Corpuscular HGB 29.7 pg (26.0-34.0); Mean Corpuscular HGB Conc 31.9 g/dL (31.5-36.5); Mean Corpuscular Volume 93 fL (80-100); Mean Platelet Volume 10.8 fL (9.1-12.4); NEUTROPHILS ABSOLUTE AUTO 3.22 K/mm3 (1.96-9.15); NEUTROPHILS PERCENT AUTO 68 % (41-73); Platelet Count 171 K/mm3 (150-400); RDW Coefficient Variation 15.9 % (11.7-14.2); RDW Standard Deviation 54.7 fL (35.1-46.3); Red Blood Cell Count 3.87 M/mm3 (3.80-5.20); White Blood Cell Count 4.76 K/mm3 (4.00-11.30)
[2024-08-06 06:24] LABS: Bun/Creatinine Ratio 5.1 (12.0-20.0); Calcium, Blood 8.8 mg/dL (8.5-10.1); Creatinine, Blood 0.39 mg/dL (0.40-1.00); Potassium, Blood 3.5 mmol/L (3.5-5.5)
--- NOTE | 2024-08-06 18:46 | NUR ---
SHIFT SUMMARY NO ACUTE CHANGES, VSS, TELE IN PLACE, D5/NS CONTINUES AT 100 ML/HR. PT DIET ADVANCED TO REGULAR DIET AND PT TOLERATING WELL. NO BM THIS SHIFT DESPITE BOWEL CARE BEING ADMINISTERED. POSSIBLE COBRA TRASNFER PER DOROTHY TO [facility] FOR GASTRO-ONCOLOGY CONSULT. PT TREATED FOR PAIN PER EMAR - EFFECTIVE. PT REMAINS INDEPENDENT IN ROOM. PT CURRENTLY RESTING IN BED WITH CALL LIGHT WITHIN REACH AND BED IN LOWEST POSITION.
--- NOTE | 2024-08-06 21:55 | NUR ---
PT BEING TRANSFERRED TO [facility] RM [phone]. CALLED AND SPOKE WITH KB AND GAVE HIM REPORT ON THE PT.
--- NOTE | 2024-08-06 23:38 | NUR ---
AMBULANCE HERE TO P/U THE PT AND TRANSPORT PT DOWN TO [facility]. PT ALERT ORIENTED X 4 AND IS AWARE OF TRANSFER. ALL BELONGINGS WERE SENT WITH THE PT.
== END 2024-08-06 23:39 | disposition short-term general hospital (02) | DRG 375 ==
LOC: ER 12:54 → ERHOLD 12:55 → MEDS 12:55
PROVIDERS: Internal Medicine; Student in an Organized Health Care Education/Training Program; ADMIT Internal Medicine
DX: C78.6 Secondary malignant neoplasm of retroperitoneum and peritoneum (principal); B00.89 Other herpesviral infection; N39.0 Urinary tract infection, site not specified; K56.609 Unspecified intestinal obstruction, unspecified as to partial versus complete obstruction; E03.9 Hypothyroidism, unspecified; E78.5 Hyperlipidemia, unspecified; M81.0 Age-related osteoporosis without current pathological fracture; E11.9 Type 2 diabetes mellitus without complications; F41.9 Anxiety disorder, unspecified; Z90.710 Acquired absence of both cervix and uterus; Z98.890 Other specified postprocedural states; Z66 Do not resuscitate; Z79.899 Other long term (current) drug therapy; Z79.890 Hormone replacement therapy; B96.20 Unspecified Escherichia coli [E. coli] as the cause of diseases classified elsewhere
CPT/HCPCS: 36415; 74019; 74177; 80048; 80053; 81001; 83605; 83690; 83735; 83880; 84439; 84443; 85025; 87077; 87086; 87186; 96361; 96365-59; 96366; 96372-59; 96375; 96376; 99285-25; A9270; G0378; J0696; J0780; J1171; J1650; J2270; J2405; J3010; J3480; J7030; J7042; Q9967